=== PATIENT | male | born 1945 | race Native Hawaiian/Other Pacific Islander ===

== ENCOUNTER 2017-05-13 12:04 | Day surgery (SDC) | payer OTHER ==
[2017-05-13 08:07] VITALS: BMI 20.7
[2017-05-13 12:42] LABS: BASO # 0.02 K/mm3 (0.0-2.0); BASO % 0.2 % (0.0-3.0); EOS # 0.1 (0.0-0.7); EOS % 0.7 % (1.5-5.0); GRAN # 6.34 (1.4-6.5); GRAN % 72.9 % (50.0-68.0); HEMATOCRIT 34.7 % (42.0-52.0); LYMPH # 1.2 (1.2-3.4); LYMPH % 14.3 % (22.0-35.0); MEAN CELL VOLUME 84.8 fl (80.0-105.0); MEAN CORPUSCULAR HEMOGLOBIN 27.6 pg (25.0-35.0); MEAN CORPUSCULAR HGB CONC 32.6 g/dl (31.0-37.0); MEAN PLATELET VOLUME 9.5 fl (7.0-11.0); MONO % 11.9 % (1.0-6.0); RED CELL DISTRIBUTION WIDTH 14.5 % (11.5-14.5); WHITE BLOOD COUNT 8.7 10^3/ul (4.5-11.0)
[2017-05-13 12:50] LABS: INR 1.16 (0.93-1.08); PARTIAL THROMBOPLASTIN TIME 43.6 Seconds (25.1-36.5)
[2017-05-13 12:53] LABS: BLOOD UREA NITROGEN 12 mg/dL (7-21); CALCIUM 10.2 mg/dL (8.4-10.5); CARBON DIOXIDE 31 mmol/L (21-33); CHLORIDE 102 mmol/L (98-107); GFR AFRICAN-AMERICAN > 60; GLUCOSE,RANDOM 97 mg/dL (70-110); POTASSIUM 4.3 mmol/L (3.6-5.0); SODIUM 140 mmol/L (132-148)
[2017-05-13] MEDS ORDERED: Iohexol 350 MG/100 ML VIAL ONE (14:48)
[2017-05-13] MEDS ORDERED: Midazolam 2 MG/2 ML VIAL ONE (14:48)
--- NOTE | 2017-05-13 16:01 | CT ---
PROCEDURE: CT Chest, Abdomen and Pelvis with intravenous contrast HISTORY: CT BONE MARROW W/ ASPIRATION RETROP BX COMPARISON: None. TECHNIQUE: IV dose administered: 100 cc of Omni 350 Radiation dose: Total exam DLP = 371 mGy-cm. This CT exam was performed using one or more of the following dose reduction techniques: Automated exposure control, adjustment of the mA and/or kV according to patient size, and/or use of iterative reconstruction technique. FINDINGS: CT CHEST WITH CONTRAST: LUNGS: Clear. No nodule, mass or consolidation. MEDIASTINUM: Unremarkable. Normal caliber aorta and pulmonary arterial trunk. No aortic dissection. Normal size heart. LYMPH NODES: Unremarkable. PLEURA: Unremarkable. No pneumothorax. No pleural fluid. BONES: Unremarkable. OTHER FINDINGS: None. CT ABDOMEN AND PELVIS: LIVER: Unremarkable. No gross lesion or ductal dilatation. GALLBLADDER AND BILE DUCTS: Unremarkable. PANCREAS: Unremarkable. No gross lesion or ductal dilatation. SPLEEN: Unremarkable. ADRENALS: Unremarkable. No mass. KIDNEYS AND URETERS: There is a soft tissue mass surrounding the lower pole of the right kidney. VASCULATURE: Unremarkable. No aortic aneurysm. BOWEL: Unremarkable. No obstruction. No gross mural thickening. APPENDIX: Normal appendix. PERITONEUM: Unremarkable. No free fluid. No free air. LYMPH NODES: There is extensive retroperitoneal adenopathy which surrounds the abdominal aorta and compresses the IVC. The angel mass extends to the right at the spine. This is best seen on image 125 series 2 where it measures 7 cm AP x 7.5 cm wide. There is also a mass along the posterior border of the right kidney measuring 2 cm in thickness. BLADDER: Unremarkable. REPRODUCTIVE: Unremarkable. BONES: No acute fracture. OTHER FINDINGS: None. IMPRESSION: Large retroperitoneal mass in the mid abdomen extending to the right. There is also a soft tissue mass surrounding the lower pole of the right kidney. Findings are consistent with lymphoma.
[2017-05-13] MEDS ORDERED: Oxycodone/Acetaminophen 5/325 mg Tab PO PRN (16:27)
[2017-05-13] MEDS ORDERED: Sodium Chloride 0.45% 1,000 ML IV SCH (16:30)
[2017-05-13 17:21] VITALS: BP 134/70; PULSE 71; RESP 18; O2SAT 98
[2017-05-13 17:25] VITALS: TEMP 97.6
--- NOTE | 2017-05-13 19:43 | CT ---
PROCEDURE: CT guided bone marrow aspiration and biopsy. HISTORY: Monoclonal gammopathy. Needs bone marrow aspiration and biopsy PHYSICIAN(S): Abdiel Woodruff MD. TECHNIQUE: The relative risks and indications of the procedure were explained to the patient and consent obtained. The patient was placed prone on the CT scanner and preliminary images through the pelvis obtained. Conscious sedation and monitoring were provided throughout the procedure by a nurse. The right posterior superior iliac spine was selected for biopsy.. A right posterior approach was selected and the area prepped and draped in the usual sterile fashion. 1% Xylocaine was used to anesthetize the skin and soft tissues. An on control bone biopsy needle was advanced into the right posterior superior iliac spine. The needle was advanced through the cortex. Bone marrow aspiration was performed. Next a long core biopsy was performed with the on control needle. The patient tolerated the procedure well. IMPRESSION: 1. CT-guided bone marrow aspiration and biopsy as described above.
--- NOTE | 2017-05-13 19:45 | CT ---
PROCEDURE: CT guided right retroperitoneal biopsy biopsy. HISTORY: Large confluent retroperitoneal mass. Possible lymphoma. Needs biopsy. PHYSICIAN(S): Abdiel Woodruff MD. TECHNIQUE: The relative risks and indications of the procedure were explained to the patient and consent obtained. The patient was placed prone on the CT scanner and preliminary images through the abdomen obtained. Conscious sedation and monitoring were provided throughout the procedure by a nurse. There is a large confluent retroperitoneal mass involving the the great vessels and right renal hilum.. A right posterior approach was selected and the area prepped and draped in the usual sterile fashion. 1% Xylocaine was used to anesthetize the skin and soft tissues. A 17-gauge guiding needle was advanced into the right periaortic confluent mass. Its position was confirmed with CT. Using coaxial technique, multiple core biopsies were obtained. The postprocedure images show no evidence of significant hemorrhage. IMPRESSION: 1. CT-guided right retroperitoneal biopsy as described above.
== END 2017-05-13 18:45 | disposition home or self-care (01) ==
LOC: SDS 12:04
PROVIDERS: ATTEND Radiology Vascular & Interventional Radiology
DX: C85.13 Unspecified B-cell lymphoma, intra-abdominal lymph nodes (principal); D47.2 Monoclonal gammopathy; K21.9 Gastro-esophageal reflux disease without esophagitis; R51 Headache
CPT/HCPCS: 36415; 38221; 38505; 71260; 74177; 77012; 80048; 85025; 85610; 85730; 88305; J2250; J2405; J3010; J7030; Q9967